=== PATIENT | male | born 1965 | race Caucasian/White ===

== ENCOUNTER → 2018-09-14 | Outpatient (CLI) | payer OTHER ==
--- NOTE | 2018-09-14 09:47 | PCVCIMAG ---
APPROVED REPORT Study performed: 09/14/2018 08:07:45 EXAM: Comprehensive 2D, Doppler, and color-flow Echocardiogram Patient Location: Echo lab Status: routine BSA: 1.91 HR: 72 bpmBP: 200/126 mmHg Rhythm: NSR Other Information Study Quality: Good Risk Factors: Cardiac Risk Factors: Hyperlipidemia, HTN Indications Hypertension/HDD 2D Dimensions IVSd: 15.44 (7-11mm)LVOT Diam: 20.91 (18-24mm) LVDd: 49.25 mm PWd: 13.42 (7-11mm)Ascending Ao: 34.34 (22-36mm) LVDs: 39.62 (25-40mm) Left Atrium: 38.70 (27-40mm) Aortic Root: 26.41 mm LV Single Plane 4CH: 39.25 % LV Single Plane 2CH: 50.85 % Biplane EF: 46.5 % Volumes Left Atrial Volume (Systole) Single Plane 4CH: 40.65 mLSingle Plane 2CH: 37.85 mL LA ESV Index: 22.00 mL/m2 Aortic Valve AoV Peak Ricci.: 1.28 m/s AO Peak Gr.: 6.51 mmHgLVOT Max P.70 mmHg LVOT Max V: 0.96 m/s MARTY Vmax: 2.59 cm2 AI Vmax: 5.01 m/s AI Swisher: 3.28 m/s2 AI PHT: 442.60 ms Mitral Valve E/A Ratio: 0.8 MV Decel. Time: 265.83 ms MV E Max Ricci.: 0.77 m/s MV A Ricci.: 0.93 m/s IVRT: 156.86 ms TDI E/Lateral E': 19.25E/Medial E': 15.40 Medial E' Ricci.: 0.05 m/s Lateral E' Ricci.: 0.04 m/s Pulmonary Valve PV Peak Gr.: 1.76 mmHg Pulmonary Vein P Vein S: 0.59 m/sP Vein A: 0.65 m/s P Vein D: 0.40 m/sP Vein A Dur.: 128.0 msec P Vein S/D Ratio: 1.48 Left Ventricle The left ventricle is normal size. There is global hypokinesis of the left ventricle. Mild concentric left ventricular hypertrophy. Left ventricular systolic function is normal. The left ventricular ejection fraction is within the normal range. LVEF is 40%. Grade I - abnormal relaxation pattern. Right Ventricle The right ventricle is normal size. The right ventricular systolic function is normal. Atria The left atrium size is normal. The right atrium size is normal. Aortic Valve The aortic valve is normal in structure. Trace aortic regurgitation. There is no aortic valvular stenosis. Mitral Valve The mitral valve is normal in structure. There is no mitral valve regurgitation noted. No evidence of mitral valve stenosis. Tricuspid Valve The tricuspid valve is normal in structure. There is no tricuspid valve regurgitation noted. Pulmonic Valve The pulmonary valve is normal in structure. There is no pulmonic valvular regurgitation. Great Vessels The aortic root is normal in size. IVC is normal in size and collapses >50% with inspiration. Pericardium There is no pericardial effusion. <Conclusion> The left ventricle is normal size. Mild concentric left ventricular hypertrophy. There is global hypokinesis of the left ventricle. LVEF is 40%. Grade I - abnormal relaxation pattern. The right ventricle is normal size. The left atrium size is normal. Trace aortic regurgitation. There is no mitral valve regurgitation noted. There is no tricuspid valve regurgitation noted. The aortic root is normal in size. There is no pericardial effusion.
== END | disposition home or self-care (01) ==
LOC: PCVCIMAG 08:00
PROVIDERS: ATTEND Neuromusculoskeletal Medicine & OMM
DX: I11.9 Hypertensive heart disease without heart failure (principal); E78.00 Pure hypercholesterolemia, unspecified
CPT/HCPCS: 93306

== ENCOUNTER → 2018-10-13 | Outpatient (CLI) | payer OTHER ==
--- NOTE | 2018-10-13 14:02 | PCVCIMAG ---
APPROVED REPORT Study performed: 10/13/2018 11:54:10 Exam: Stress Echocardiogram Indication: Hypertension,LVH Patient Location: Echo lab Stress Nurse: Vaishali Rahman RN Room #: 1 Status: routine Ht: 5 ft 7 in HR: 62 bpm BP: 170/86 mmHg Rhythm: NSR Medical History Medical History: HTN,Reduced EF on Echo Cardiac Risk Factors: HTN Previous Cardiac Procedures: none Pretest Chest Pain Characteristics: No chest pain Exercise History: Physically active Procedure The patient underwent an Exercise Stress Test using the Emigdio Protocol. Blood pressure, heart rate, and EKG were monitored. An Echocardiogram was performed by metallurgical engineering technician in four stages in quad fashion. At peak stress, four selected images were obtained and placed side by side with resting images for comparison. Stress Test Details Stress Test: Exercise stress testing was performed using a Emigdio protocol. HR Resting HR: 62 bpmMax Heart Rate (APMHR): 166 bpm Max HR Achieved: 150 bpmTarget HR (85% APMHR): 141 bpm % of APMHR: 90 Recovery HR: 96 bpm HR response to stress: Normal HR response to stress BP Resting BP: 170/86 mmHg Max BP: 198/100 mmHg Recovery BP: 156/94 mmHg BP response to stress: Mildly elevated at rest, BP meds were held ECG Resting ECG: Sinus Rhythm, LVH with repolarization changes Stress ECG: Sinus Rhythm ST Change: Non-ischemic Arrhythmia: occ PAC,PVC Recovery ECG: Sinus Rhythm Recovery ST Change: Non-ischemic Recovery Arrhythmia: occ PAC Clinical Reason for Termination: Maximal effort Stress Symptoms: none Exercise duration: 9 min 32 sec Exercise capacity: 11.6 METs Overall Exercise Capacity for Age: Good Angina Score: None No complications. Stress ECG Conclusion The patient exercised according to the EMIGDIO protocol for 9:32 mins; achieving a work level of 11.6 METS. The resting heart rate of 60 bpm jono to a maximum heart rate of 150 bpm. This value represent 90% of the maximal, age-predicted heart rate. The resting blood pressure of 170/86 mmHg, jono to a maximum blood pressure of 198/100 mmHg. The exercise test was stopped due to dyspnea,fatigue. Pre-Stress Echo The resting Echocardiogram showed normal left ventricular contractility with an estimated Ejection Fraction of about 50%. Normal wall motion in all segments on baseline images. Post-Stress Echo The stress Echocardiogram showed normal left ventricular contractility with an estimated Ejection Fraction of about 60%. Normal augmentation of wall motion in all segments on post stress images. Clinical No clinical or ECG evidence for ischemia. Conclusion Clinical Response: Non-ischemic Exercise Capacity: Superior Stress ECG Response: Non-ischemic Stress Echo Images: Non-ischemic No clinical, EKG or echocardiographic evidence for ischemia. No echocardiographic evidence for exercise induced ischemia. Normal stress echocardiogram with maximal exercise stress. <Conclusion> No clinical, EKG or echocardiographic evidence for ischemia. No echocardiographic evidence for exercise induced ischemia. Normal stress echocardiogram with maximal exercise stress.
== END | disposition home or self-care (01) ==
LOC: PCVCIMAG 11:18
PROVIDERS: ATTEND Internal Medicine Cardiovascular Disease
DX: Z00.00 Encounter for general adult medical examination without abnormal findings (principal); I42.9 Cardiomyopathy, unspecified; R07.9 Chest pain, unspecified; I10 Essential (primary) hypertension; I51.7 Cardiomegaly; E78.01 Familial hypercholesterolemia; F41.9 Anxiety disorder, unspecified; E78.00 Pure hypercholesterolemia, unspecified; E78.2 Mixed hyperlipidemia; Z79.899 Other long term (current) drug therapy; Z88.0 Allergy status to penicillin
CPT/HCPCS: 93325; 93351